=== PATIENT | female | born 1960 | race African-American/Black ===

== ENCOUNTER 2021-09-13 19:01 | Emergency (ER) | payer BC ==
[2021-09-13] MEDS ORDERED: NA CHLORIDE 0.9% 1,000 ML ONE ×2 (20:20→21:31)
[2021-09-13] MEDS ORDERED: INSULIN -REGULAR HUMAN 50 UNIT/0.5 ML ML ONE (20:20)
[2021-09-13 20:25] LABS: Urine Blood Trace-lysed (Negative); Urine Glucose 2+ (Negative); Urine Protein Negative (Negative)
[2021-09-13 20:27] LABS: Absolute Lymphocytes (CBC) 1.7 K/uL (0.7-4.9); Hematocrit 39.9 % (36.0-45.0); Lymphocytes % 20.9 % (15.3-44.8); RBC Red Blood Cell Count 4.43 M/uL (3.86-4.86)
[2021-09-13 20:33] LABS: BUN Blood Urea Nitrogen 33 mg/dL (7-18); Bicarbonate 24 mmol/L (21-32); Potassium 4.4 mmol/L (3.5-5.1); Sodium Level 129 mmol/L (136-145)
[2021-09-13 20:34] LABS: Glucose Level 495 mg/dL (74-106)
[2021-09-13 21:30] LABS: Arterial Blood Carboxyhemoglob 1.3 % (0-1.5); Blood Gas Oxyhemoglobin 93.5 % (94-97); Blood O2 Saturation 96.1 % (92-98.5)
[2021-09-13] MEDS ORDERED: KETOROLAC 30 MG/ML INJ ONE (21:31)
--- NOTE | 2021-09-13 21:53 | ER ---
Nurse's Notes [facility] Name: Judit Presley Age: 61 yrs Sex: Female : 1960 Arrival Date: 09/13/2021 Time: 19:03 Bed 6 Private MD: Diagnosis: Diabetes mellitus due to underlying condition with hyperglycemia Presentation: 09/13 19:35 Chief complaint: Patient states: high blood sugar reading of 471 at home. denies any lg3 symptoms other than being tired. Coronavirus screen: Client denies travel out of the [place] in the last 14 days. At this time, the client does not indicate any symptoms associated with coronavirus-19. Ebola Screen: No symptoms or risks identified at this time. Initial Sepsis Screen: Does the patient meet any 2 criteria? No. Patient's initial sepsis screen is negative. Does the patient have a suspected source of infection? No. Patient's initial sepsis screen is negative. Risk Assessment: Do you want to hurt yourself or someone else? Patient reports no desire to harm self or others. Onset of symptoms was September 13, 2021 at 17:15. 19:35 Method Of Arrival: Ambulatory lg3 19:35 Acuity: ALEXIS 4 lg3 Triage Assessment: 19:38 General: Appears in no apparent distress. comfortable, Behavior is calm, cooperative. lg3 Pain: Denies pain. Neuro: No deficits noted. Level of Consciousness is awake, alert, obeys commands, Oriented to person, place, time, situation, [place] are equal bilaterally Moves all extremities. Gait is steady. Respiratory: No deficits noted. Airway is patent Trachea midline Respiratory effort is even, unlabored, Respiratory pattern is regular, symmetrical. Historical: - Allergies: 19:38 No Known Allergies; lg3 - Home Meds: 19:38 hydrochlorothiazide 25 mg Oral tab 1 tab once daily [Active]; irbesartan 300 mg oral lg3 tab 1 tab once daily [Active]; - PMHx: 19:38 Diabetes mellitus; lg3 - PSHx: 19:38 None; lg3 - Immunization history:: Adult Immunizations up to date, Client reports receiving the 2nd dose of the Covid vaccine, pfizer X3. - Social history:: Smoking status: Patient denies any tobacco usage or history of. Patient uses alcohol, only on a social basis. Patient/guardian denies using street drugs. Screenin:43 Abuse screen: Denies threats or abuse. Denies injuries from another. Nutritional sm5 screening: No deficits noted. Tuberculosis screening: No symptoms or risk factors identified. Fall Risk None identified. Assessment: 20:25 General: Appears in no apparent distress. Behavior is cooperative, appropriate for age. sm5 Pain: Denies pain. Neuro: No deficits noted. Level of Consciousness is awake, alert, obeys commands, Oriented to person, place, time, situation. Cardiovascular: No deficits noted. Capillary refill < 3 seconds Patient's skin is warm and dry. Respiratory: No deficits noted. Airway is patent Trachea midline Respiratory effort is even, unlabored. 21:36 Reassessment: No changes from previously documented assessment. sm5 22:15 Reassessment: Patient states feeling better. sm5 Vital Signs: 19:35 BP 134 / 93; Pulse 118; Resp 18 S; Temp 98.2(TE); Pulse Ox 100% on R/A; Weight 70.31 kg lg3 (R); Height 5 ft. 3 in. (160.02 cm) (R); Pain 0/10; 21:53 BP 126 / 69; Pulse 95; Resp 18; Pulse Ox 97% on R/A; sm5 22:00 BP 118 / 96; Pulse 92; Resp 17; Pulse Ox 100% on R/A; sm5 19:35 Body Mass Index 27.46 (70.31 kg, 160.02 cm) lg3 ED Course: 19:03 Patient arrived in ED. kc5 19:38 Triage completed. lg3 19:38 Arm band placed on right wrist. lg3 19:47 Adam Smith PA is PHCP. jr8 19:47 John Rios MD is Attending Physician. jr8 19:56 Gladis Smith RN is Primary Nurse. sm5 20:11 Inserted saline lock: 20 gauge in right forearm, using aseptic technique. sm5 20:12 Acetone, Serum Sent. sm5 20:12 Basic Metabolic Panel Sent. sm5 20:12 CBC with Diff Sent. sm5 22:43 Patient has correct armband on for positive identification. Bed in low position. Call 5 light in reach. Side rails up X2. 22:44 No provider procedures requiring assistance completed. IV discontinued, intact, sm5 bleeding controlled, No redness/swelling at site. Pressure dressing applied. Administered Medications: 20:20 Drug: NS 0.9% 1000 ml Route: IV; Rate: 1000 ml; Site: right forearm; sm5 20:20 Drug: Insulin Regular Human 10 units {Co-Signature: st1 (Marifer Shields RN).} Route: sm5 IVP; Site: right forearm; 21:32 Drug: Ketorolac 15 mg Route: IVP; Site: right forearm; sm5 21:32 Drug: NS 0.9% 1000 ml Route: IV; Rate: 1000 ml; Site: right forearm; 5 Outcome: 21:52 Discharge ordered by . kayode 22:44 Discharged to home ambulatory. [facility] 22:44 Condition: good 22:44 Discharge instructions given to patient, Instructed on discharge instructions, follow up and referral plans. keeping a record of blood sugars Demonstrated understanding of instructions, follow-up care. 22:45 Patient left the ED. [facility] Signatures: Adam Smith PA PA jr8 Danuta Joyce RN RN lg3 Michelle Rush 5 Gladis Smith RN RN sm5 Marifer Shields RN st1
--- NOTE | 2021-09-13 21:53 | EDPHYS ---
Physician Documentation [facility] Name: Judit Presley Age: 61 yrs Sex: Female : 1960 Arrival Date: 09/13/2021 Time: 19:03 Bed 6 Private MD: ED Physician John Rios HPI: 09/13 20:03 This 61 yrs old Black Female presents to ER via Ambulatory with complaints of High jr8 Blood Sugar. 20:03 Onset: The symptoms/episode began/occurred gradually, 2 day(s) ago. Associated signs jr8 and symptoms: Pertinent positives: polyuria, Brain fog and extreme fatigue. Current symptoms: In the emergency department the patient's symptoms are unchanged from the initial presentation. The patient has experienced a previous episode. The patient has not recently seen a physician. Historical: - Allergies: 19:38 No Known Allergies; lg3 - Home Meds: 19:38 hydrochlorothiazide 25 mg Oral tab 1 tab once daily [Active]; irbesartan 300 mg oral lg3 tab 1 tab once daily [Active]; - PMHx: 19:38 Diabetes mellitus; lg3 - PSHx: 19:38 None; lg3 - Immunization history:: Adult Immunizations up to date, Client reports receiving the 2nd dose of the Covid vaccine, pfizer X3. - Social history:: Smoking status: Patient denies any tobacco usage or history of. Patient uses alcohol, only on a social basis. Patient/guardian denies using street drugs. ROS: 20:03 Eyes: Negative for injury, pain, redness, and discharge, ENT: Negative for injury, jr8 pain, and discharge, Neck: Negative for injury, pain, and swelling, Cardiovascular: Negative for chest pain, palpitations, and edema, Respiratory: Negative for shortness of breath, cough, wheezing, and pleuritic chest pain, Abdomen/GI: Negative for abdominal pain, nausea, vomiting, diarrhea, and constipation, Back: Negative for injury and pain, MS/Extremity: Negative for injury and deformity, Skin: Negative for injury, rash, and discoloration, Neuro: Negative for headache, weakness, numbness, tingling, and seizure. 20:03 Constitutional: Positive for fatigue, malaise. 20:03 Endocrine: Positive for polyuria. Exam: 20:03 Constitutional: This is a well developed, well nourished patient who is awake, alert, jr8 and in no acute distress. Eyes: Pupils equal round and reactive to light, extra-ocular motions intact. Lids and lashes normal. Conjunctiva and sclera are non-icteric and not injected. Cornea within normal limits. Periorbital areas with no swelling, redness, or edema. ENT: Nares patent. No nasal discharge, no septal abnormalities noted. Tympanic membranes are normal and external auditory canals are clear. Oropharynx with no redness, swelling, or masses, exudates, or evidence of obstruction, uvula midline. Mucous membranes moist. Neck: Trachea midline, no thyromegaly or masses palpated, and no cervical lymphadenopathy. Supple, full range of motion without nuchal rigidity, or vertebral point tenderness. No Meningismus. Cardiovascular: Regular rate and rhythm with a normal S1 and S2. No gallops, murmurs, or rubs. Normal PMI, no JVD. No pulse deficits. Respiratory: Lungs have equal breath sounds bilaterally, clear to auscultation and percussion. No rales, rhonchi or wheezes noted. No increased work of breathing, no retractions or nasal flaring. Abdomen/GI: Soft, non-tender, with normal bowel sounds. No distension or tympany. No guarding or rebound. No evidence of tenderness throughout. Skin: Warm, dry with normal turgor. Normal color with no rashes, no lesions, and no evidence of cellulitis. MS/ Extremity: Pulses equal, no cyanosis. Neurovascular intact. Full, normal range of motion. Neuro: Awake and alert, GCS 15, oriented to person, place, time, and situation. Cranial nerves II-XII grossly intact. Motor strength 5/5 in all extremities. Sensory grossly intact. Cerebellar exam normal. Normal gait. Vital Signs: 19:35 BP 134 / 93; Pulse 118; Resp 18 S; Temp 98.2(TE); Pulse Ox 100% on R/A; Weight 70.31 kg lg3 (R); Height 5 ft. 3 in. (160.02 cm) (R); Pain 0/10; 21:53 BP 126 / 69; Pulse 95; Resp 18; Pulse Ox 97% on R/A; sm5 22:00 BP 118 / 96; Pulse 92; Resp 17; Pulse Ox 100% on R/A; sm5 19:35 Body Mass Index 27.46 (70.31 kg, 160.02 cm) lg3 MDM: 19:47 Patient medically screened. [facility] 21:51 Data reviewed: vital signs, nurses notes, lab test result(s), and as a result, I will jr8 discharge patient. Data interpreted: Pulse oximetry: on room air is 100 %. Interpretation: normal. Counseling: I had a detailed discussion with the patient and/or guardian regarding: the historical points, exam findings, and any diagnostic results supporting the discharge/admit diagnosis, lab results, the need for outpatient follow up, a family practitioner, to return to the emergency department if symptoms worsen or persist or if there are any questions or concerns that arise at home. Response to treatment: the patient's symptoms have markedly improved after treatment, patient is well hydrated. 09/13 19:55 Order name: Glucose, Ancillary Testing; Complete Time: 19:57 EDMS 09/13 19:58 Order name: CBC with Diff; Complete Time: 20:33 [facility] 09/13 19:58 Order name: Basic Metabolic Panel; Complete Time: 20:39 8 09/13 19:58 Order name: Acetone, Serum; Complete Time: 20:39 8 09/13 20:25 Order name: Urine Dipstick-Ancillary; Complete Time: 20:32 EDMS 09/13 20:39 Order name: ABG [facility] 09/13 19:47 Order name: Glucose Level; Complete Time: 19:56 [facility] 09/13 20:39 Order name: ABG Arterial Blood Gas; Complete Time: 21:32 EDMT 09/13 21:37 Order name: Glucose, Ancillary Testing; Complete Time: 21:51 EDMT 09/13 22:36 Order name: Glucose, Ancillary Testing; Complete Time: 01:34 EDMT 09/13 19:58 Order name: IV; Complete Time: 20:12 [facility] 09/13 19:58 Order name: Urine Dipstick-Ancillary (obtain specimen); Complete Time: 20:25 [facility] Administered Medications: 20:20 Drug: NS 0.9% 1000 ml Route: IV; Rate: 1000 ml; Site: right forearm; 5 20:20 Drug: Insulin Regular Human 10 units {Co-Signature: st1 (Marifer Shields RN).} Route: sm5 IVP; Site: right forearm; 21:32 Drug: Ketorolac 15 mg Route: IVP; Site: right forearm; sm5 21:32 Drug: NS 0.9% 1000 ml Route: IV; Rate: 1000 ml; Site: right forearm; sm5 Disposition: 09/14 00:56 Co-signature as Attending Physician, John Rios MD I agree with the assessment and kdr plan of care. Disposition Summary: 09/13/21 21:52 Discharge Ordered Location: Home jr8 Problem: new jr8 Symptoms: have improved jr8 Condition: Stable jr8 Diagnosis - Diabetes mellitus due to underlying condition with hyperglycemia jr8 Followup: jr8 - With: Private Physician - When: 5 - 6 days - Reason: Recheck today's complaints, Continuance of care, Re-evaluation by your physician Discharge Instructions: - Discharge Summary Sheet jr8 - Hyperglycemia jr8 Forms: - Medication Reconciliation Form jr8 - Thank You Letter jr8 - Antibiotic Education jr8 - Prescription Opioid Use jr8 Signatures: Dispatcher [employer] EDMS John Rios MD MD [facility] Adam Smith PA PA jr8 Danuta Joyce, RN RN lg3 Gladis Smith RN RN sm5 Marifer Shields RN st1
[2021-09-13 23:52] VITALS: TEMP 98.2
[2021-09-13 23:58] VITALS: BP 118/96; O2SAT 100
== END 2021-09-13 22:45 | disposition home or self-care (01) ==
LOC: ER 19:01
DX: E11.65 Type 2 diabetes mellitus with hyperglycemia (principal)
CPT/HCPCS: 85025; 80048; 36415; 82010; 82947 ×3; 81003; 82805; 96375; 96374; 99283; J7030 ×2

== ENCOUNTER 2021-09-20 16:33 | Emergency (ER) | payer BC ==
[2021-09-20] MEDS ORDERED: NA CHLORIDE 0.9% 1,000 ML ONE ×2 (17:28→20:25)
[2021-09-20 17:58] LABS: Absolute Lymphocytes (CBC) 1.7 K/uL (0.7-4.9); Hematocrit 41.5 % (36.0-45.0); Lymphocytes % 22.2 % (15.3-44.8); MPV 8.9 fL (7.6-11.3); RBC Red Blood Cell Count 4.69 M/uL (3.86-4.86)
[2021-09-20 18:21] LABS: ALT/SGPT 49 U/L (12-78); AST/SGOT 14 U/L (15-37); Albumin 3.9 g/dL (3.4-5.0); Alkaline Phosphatase 113 U/L (45-117); BUN Blood Urea Nitrogen 25 mg/dL (7-18); Bicarbonate 23 mmol/L (21-32); Bilirubin Total 0.7 mg/dL (0.2-1.0); Glucose Level 208 mg/dL (74-106); Potassium 3.5 mmol/L (3.5-5.1); Protein, Total 8.5 g/dL (6.4-8.2); Sodium Level 131 mmol/L (136-145)
--- NOTE | 2021-09-20 20:36 | ER ---
Nurse's Notes [facility] Name: Judit Presley Age: 61 yrs Sex: Female : 1960 Arrival Date: 09/20/2021 Time: 16:34 Bed 7 Private MD: Diagnosis: Hyperglycemia, unspecified Presentation: 09/20 17:00 Chief complaint: Patient states: reports elevated BS and generalized weakness x 3wks jh6 that has progressively gotten worse. states that BS has been over 3-400 and was seen in er last week for same s.s. Coronavirus screen: Vaccine status: Patient reports receiving the 2nd dose of the covid vaccine. Ebola Screen: Patient denies travel to an Ebola-affected area in the 21 days before illness onset. Initial Sepsis Screen: Does the patient meet any 2 criteria? No. Patient's initial sepsis screen is negative. Does the patient have a suspected source of infection? No. Patient's initial sepsis screen is negative. Risk Assessment: Do you want to hurt yourself or someone else? Patient reports no desire to harm self or others. Onset of symptoms. 17:00 Method Of Arrival: Ambulatory [facility] 17:00 Acuity: ALEXIS 3 6 Triage Assessment: 17:04 General: Appears in no apparent distress. Behavior is calm, cooperative, Smells of. [facility] Pain: Denies pain. 17:05 General: Appears in no apparent distress. comfortable, Behavior is calm, cooperative, bp appropriate for age. Pain: Denies pain. EENT: No deficits noted. Neuro: Level of Consciousness is awake, alert, obeys commands, Oriented to Appropriate for age. Cardiovascular: Rhythm is sinus rhythm. Respiratory: No deficits noted. GI: No deficits noted. : No signs and/or symptoms were reported regarding the genitourinary system. Derm: No deficits noted. Musculoskeletal: No deficits noted. Historical: - Allergies: 17:03 No Known Allergies; [facility] - PMHx: 17:03 diabetes mellitus; [facility] - Immunization history:: Adult Immunizations up to date, Client reports receiving the 2nd dose of the Covid vaccine. - Social history:: Smoking status: Patient denies any tobacco usage or history of. Screenin:04 Abuse screen: Denies threats or abuse. Nutritional screening: No deficits noted. [facility] Tuberculosis screening: No symptoms or risk factors identified. Fall Risk Gait- Weak (10 pts.). Assessment: 17:05 General: SEE TRIAGE NOTE. bp 17:46 Reassessment: No changes from previously documented assessment. Patient is alert, bp oriented x 3, equal unlabored respirations, skin warm/dry/pink. 18:30 Reassessment: No changes from previously documented assessment. Patient is alert, bp oriented x 3, equal unlabored respirations, skin warm/dry/pink. 20:00 General: Appears in no apparent distress. comfortable, Behavior is calm, cooperative, al4 patient states she has been feeling fatigued and took her blood sugar at home and it was high, but she had no other signs or symptoms that indicated high blood sugar. . Pain: Denies pain. Neuro: Level of Consciousness is awake, alert, obeys commands, Oriented to person, place, time, situation. Cardiovascular: Denies chest pain, shortness of breath, Capillary refill < 3 seconds Patient's skin is warm and dry. Respiratory: Airway is patent Respiratory effort is even, unlabored, Respiratory pattern is regular, symmetrical. GI: Patient currently denies diarrhea, nausea, vomiting. 20:00 Musculoskeletal: Range of motion: intact in all extremities. al4 20:36 Reassessment: Verbal order from ER ENGINEERING LAB TECHNICIAN to allow for completion of fluid bolus and a al4 repeat BGL once fluids are finished before discharge. 21:00 Reassessment: Patient is alert, oriented x 3, equal unlabored respirations, skin al4 warm/dry/pink. 21:51 Reassessment: BGL 143. al4 21:59 Reassessment: patient ambulated to restroom. al4 Vital Signs: 17:00 BP 106 / 82; Pulse 89; Resp 18; Temp 97.6; Pulse Ox 99% ; Weight 65.77 kg; Height 5 ft. jh6 3 in. (160.02 cm); Pain 0/10; 17:45 BP 137 / 74; Pulse 75; Resp 16; Pulse Ox 100% ; bp 18:30 BP 124 / 64; Pulse 84; Resp 16; Pulse Ox 99% ; bp 19:00 BP 120 / 69; Pulse 82; Resp 18; Pulse Ox 98% on R/A; al4 20:00 BP 131 / 67; Pulse 80; Resp 18; Pulse Ox 100% ; al4 21:30 BP 127 / 65; Pulse 84; Resp 18 S; Pulse Ox 100% on R/A; Pain 0/10; al4 17:00 Body Mass Index 25.69 (65.77 kg, 160.02 cm) [facility] ED Course: 16:34 Patient arrived in ED. as 17:03 Triage completed. jh6 17:04 Arm band placed on right wrist. 6 17:05 Patient has correct armband on for positive identification. Bed in low position. Call bp light in reach. Side rails up X2. 17:09 Kt Peter NP is PHCP. pm1 17:09 Scott Trivedi MD is Attending Physician. pm1 17:20 Robert Morrison, CATHY is Primary Nurse. bp 17:45 Inserted saline lock: 22 gauge in right antecubital area, using aseptic technique. bp Blood collected. 19:31 TSH Sent. ke1 19:31 CMP Sent. ke1 19:31 Ketone, Serum Sent. ke1 19:31 CBC with Diff Sent. ke1 22:07 No provider procedures requiring assistance completed. IV discontinued, intact, al4 bleeding controlled, No redness/swelling at site. Pressure dressing applied. Administered Medications: 17:45 Drug: NS 0.9% 1000 ml Route: IV; Rate: 1000 ml; Site: right antecubital; bp 19:00 Follow up: Response: No adverse reaction al4 20:28 Drug: NS 0.9% 1000 ml Route: IV; Rate: 1000 ml; Site: right antecubital; al4 21:52 Follow up: IV Status: Completed infusion al4 Outcome: 20:36 Discharge ordered by MD. pm1 22:07 Discharged to home ambulatory. al4 22:07 Condition: stable 22:07 Discharge instructions given to patient, Instructed on discharge instructions, follow up and referral plans. Demonstrated understanding of instructions, follow-up care. 22:09 Patient left the ED. al4 Signatures: Carmen Torrez Patrick, YOLANDA ENGINEERING LAB TECHNICIAN pm1 Robert Morrison, CATHY MORGAN bp Clary Terrazas RN RN 6 Davion Givens al4 Mohinder Nick RN RN ke1 Corrections: (The following items were deleted from the chart) 20:32 20:00 General: Appears in no apparent distress. comfortable, Behavior is calm, al4 cooperative, patient states she took her blood sugar at home and it was high, but she had no signs or symptoms that indicated high blood sugar. . al4
--- NOTE | 2021-09-20 20:36 | EDPHYS ---
Physician Documentation [facility] Name: Judit Presley Age: 61 yrs Sex: Female : 1960 Arrival Date: 09/20/2021 Time: 16:34 Bed 7 Private MD: ED Physician Scott Trivedi HPI: 09/20 17:39 This 61 yrs old Black Female presents to ER via Ambulatory with complaints of High pm1 Blood Sugar. 17:39 The patient or guardian reports hyperglycemia, that was potentially precipitated by pm1 unknown. Onset: The symptoms/episode began/occurred 2 week(s) ago. Associated signs and symptoms: Pertinent positives: fatigue. Current symptoms: In the emergency department the patient's symptoms are unchanged from the initial presentation. The patient has been recently seen by a physician: the patient's primary care provider, with similar presenting complaints, given two additional diabetic medications. Patient with complaints of hyperglycemia 300 to 400 range for the past 2 weeks. Patient was seen here in the ER for the same complaints 1 week ago and was discharged home after hyperglycemia improved. Patient followed up with her PCP the next day and was prescribed 2 new medications. Patient reports feeling fatigued from the medications. She has been continuing to take the medications. She had some blood work that was ordered by PCP but she has not been able to get them completed. Historical: - Allergies: 17:03 No Known Allergies; jh6 - PMHx: 17:03 diabetes mellitus; 6 - Immunization history:: Adult Immunizations up to date, Client reports receiving the 2nd dose of the Covid vaccine. - Social history:: Smoking status: Patient denies any tobacco usage or history of. ROS: 17:43 Cardiovascular: Negative for chest pain, palpitations, and edema, Respiratory: Negative pm1 for shortness of breath, cough, wheezing, and pleuritic chest pain, Abdomen/GI: Negative for abdominal pain, nausea, vomiting, diarrhea, and constipation, Back: Negative for injury and pain, MS/Extremity: Negative for injury and deformity, Skin: Negative for injury, rash, and discoloration, Neuro: Negative for headache, weakness, numbness, tingling, and seizure. 17:43 Constitutional: Positive for Decreased energy, Negative for body aches, fever, poor PO intake. 17:43 All other systems are negative. Exam: 17:43 Constitutional: This is a well developed, well nourished patient who is awake, alert, pm1 and in no acute distress. Head/Face: Normocephalic, atraumatic. 17:43 Back: No spinal tenderness. No costovertebral tenderness. Full range of motion. Skin: Warm, dry with normal turgor. Normal color with no rashes, no lesions, and no evidence of cellulitis. MS/ Extremity: Pulses equal, no cyanosis. Neurovascular intact. Full, normal range of motion. 17:43 Eyes: Exam is negative for acute changes, Extraocular movements: intact throughout, Conjunctiva: no acute changes, no injection, Sclera: no acute changes, icterus, is not appreciated. 17:43 ENT: Exam is negative for acute changes, Mouth: no acute changes, Lips: normal, moist, Oral mucosa: normal, pink and intact, moist. 17:43 Cardiovascular: Exam negative for acute changes, Rate: normal, Rhythm: regular, Pulses: no pulse deficits are appreciated, Heart sounds: normal. 17:43 Respiratory: Exam negative for acute changes, respiratory distress, shortness of breath, Breath sounds: are clear throughout. 17:43 Abdomen/GI: Exam negative for acute changes, Inspection: abdomen appears normal, Palpation: abdomen is soft and non-tender, in all quadrants. 17:43 Neuro: Exam negative for acute changes, Orientation: is normal, Mentation: is normal, Motor: is normal, moves all fours. Vital Signs: 17:00 BP 106 / 82; Pulse 89; Resp 18; Temp 97.6; Pulse Ox 99% ; Weight 65.77 kg; Height 5 ft. jh6 3 in. (160.02 cm); Pain 0/10; 17:45 BP 137 / 74; Pulse 75; Resp 16; Pulse Ox 100% ; bp 18:30 BP 124 / 64; Pulse 84; Resp 16; Pulse Ox 99% ; bp 19:00 BP 120 / 69; Pulse 82; Resp 18; Pulse Ox 98% on R/A; al4 20:00 BP 131 / 67; Pulse 80; Resp 18; Pulse Ox 100% ; al4 21:30 BP 127 / 65; Pulse 84; Resp 18 S; Pulse Ox 100% on R/A; Pain 0/10; al4 17:00 Body Mass Index 25.69 (65.77 kg, 160.02 cm) jh6 MDM: 17:10 Patient medically screened. stefan 20:35 Data reviewed: vital signs. Data interpreted: Pulse oximetry: on room air is 100 %. pm1 Interpretation: normal. Counseling: I had a detailed discussion with the patient and/or guardian regarding: the historical points, exam findings, and any diagnostic results supporting the discharge/admit diagnosis, lab results, the need for outpatient follow up, to return to the emergency department if symptoms worsen or persist or if there are any questions or concerns that arise at home. 09/20 17:12 Order name: Glucose, Ancillary Testing; Complete Time: 17:21 EDMS 09/20 17:21 Order name: CBC with Diff pm1 09/20 17:21 Order name: CMP pm1 09/20 17:21 Order name: Ketone, Serum pm1 09/20 17:21 Order name: TSH pm1 09/20 17:21 Order name: CBC with Automated Diff; Complete Time: 18:06 EDMS 09/20 17:21 Order name: Comprehensive Metabolic Panel; Complete Time: 18:55 EDMS 09/20 17:21 Order name: Acetone Level; Complete Time: 18:55 EDMS 09/20 17:21 Order name: Thyroid Stimulating Hormone; Complete Time: 18:55 EDMS 09/20 18:56 Order name: ABG pm1 09/20 18:57 Order name: ABG Arterial Blood Gas; Complete Time: 22:35 EDMS 09/20 22:00 Order name: Glucose, Ancillary Testing EDTN 09/20 22:01 Order name: Urine Dipstick-Ancillary; Complete Time: 22:35 EDMS 09/20 17:21 Order name: Urine Dipstick-Ancillary (obtain specimen); Complete Time: 21:59 pm1 09/20 17:21 Order name: IV Saline Lock; Complete Time: 17:45 pm1 09/20 20:36 Order name: Glucose Level: after 2nd NS bolus; Complete Time: 21:51 pm1 Administered Medications: 17:45 Drug: NS 0.9% 1000 ml Route: IV; Rate: 1000 ml; Site: right antecubital; bp 19:00 Follow up: Response: No adverse reaction al4 20:28 Drug: NS 0.9% 1000 ml Route: IV; Rate: 1000 ml; Site: right antecubital; al4 21:52 Follow up: IV Status: Completed infusion al4 Disposition Summary: 09/20/21 20:36 Discharge Ordered Location: Home pm1 Problem: new pm1 Symptoms: have improved pm1 Condition: Stable pm1 Diagnosis - Hyperglycemia, unspecified pm1 Followup: pm1 - With: Emergency Department - When: As needed - Reason: Worsening of condition Followup: pm1 - With: Private Physician - When: 2 - 3 days - Reason: Recheck today's complaints, Continuance of care, Re-evaluation by your physician Discharge Instructions: - Discharge Summary Sheet pm1 - Hyperglycemia pm1 - Blood Glucose Monitoring, Adult pm1 - Diabetes Mellitus and Exercise pm1 - Diabetes Mellitus and Nutrition, Adult pm1 Forms: - Medication Reconciliation Form pm1 - Thank You Letter pm1 - Antibiotic Education pm1 - Prescription Opioid Use pm1 Addendum: 09/23/2021 09:24 Co-signature as Attending Physician, Scott Trivedi MD I agree with the assessment and c reilly plan of care. Signatures: Dispatcher [employer] EDScott Henao MD MD cha Marinas, Patrick, YOLANDA TORPEDO SPECIALIST pm1 Robetr Morrison, RN RN bp Clary Terrazas RN RN jh6 Davion Givens al4
[2021-09-20 22:00] LABS: Arterial Blood Carboxyhemoglob 1.6 % (0-1.5); Blood Gas Oxyhemoglobin 94.5 % (94-97); Blood O2 Saturation 97.2 % (92-98.5)
[2021-09-20 22:01] LABS: Urine Blood Trace-intact (Negative); Urine Glucose 2+ (Negative); Urine Protein Trace (Negative); Urine Specific Gravity 1.025 (1.005-1.030); Urine pH 5.5 (5.0-7.0)
[2021-09-20 22:51] VITALS: TEMP 97.6
[2021-09-20 22:56] VITALS: O2SAT 100
[2021-09-20 22:58] VITALS: BP 127/65
== END 2021-09-20 22:09 | disposition home or self-care (01) ==
LOC: ER 16:33
DX: E11.65 Type 2 diabetes mellitus with hyperglycemia (principal)
CPT/HCPCS: 85025; 36415; 82010; 82947 ×2; 84443; 81003; 80053; 82805; 96360; 99284; J7030 ×2

== ENCOUNTER 2022-08-22 07:51 | Observation (INO) | payer BC ==
--- NOTE | 2022-08-19 16:16 | RAD REPORT ---
EXAM DESCRIPTION: RAD - Chest Pa And Lat (2 Views) - 08/19/2022 4:06 pm CLINICAL HISTORY: Pre op pending possible appendectomy COMPARISON: <Comparisons> FINDINGS: Lines: None. Lungs: No evidence of edema or pneumonia. Pleural: No significant pleural effusions or pneumothorax. Cardiac: The heart size is within normal limits. Mediastinum: Within normal limits. Bones: No acute fractures. Other: None IMPRESSION: No acute cardiopulmonary disease.
[2022-08-19 16:46] LABS: Absolute Lymphocytes (CBC) 2.2 K/uL (0.7-4.9); Hematocrit 38.5 % (36.0-45.0); Lymphocytes % 30.4 % (15.3-44.8); MCV 90.1 fL (80-100); MPV 7.7 fL (7.6-11.3); RBC Red Blood Cell Count 4.28 M/uL (3.86-4.86)
[2022-08-19 16:48] LABS: Potassium 3.7 mmol/L (3.5-5.1)
[2022-08-22] MEDS ORDERED: propofoL 200 MG/20 ML VIAL IV ONE (08:05)
[2022-08-22] MEDS ORDERED: ROCURONIUM 50 MG/5 ML VIAL IV ONE (08:05)
[2022-08-22] MEDS ORDERED: FENTANYL CITR 100 MCG/2 ML ONE ×2 (08:05→10:04)
[2022-08-22] MEDS ORDERED: dexAMETHasone 10 MG/ML VIAL ONE (08:06)
[2022-08-22] MEDS ORDERED: LIDOCAINE 2% MPF 5 ML VIAL ONE (08:06)
[2022-08-22] MEDS ORDERED: KETOROLAC 30 MG/ML INJ ONE (08:09)
[2022-08-22] MEDS ORDERED: MIDAZOLAM HCL 2 MG/2 ML INJ ONE (08:09)
[2022-08-22] MEDS ORDERED: ONDANSETRON 4 MG/2 ML VIAL ONE (08:11)
[2022-08-22] MEDS: NA CHLORIDE 0.9% 1,000 ML ONE ×2 (08:11→09:28)
[2022-08-22] MEDS ORDERED: CEFOXITIN SODIUM 1 GM/VIAL ONE (09:30)
[2022-08-22] MEDS ORDERED: NA CHLORIDE 0.9% 1,000 ML ONE (10:36)
[2022-08-22] MEDS ORDERED: Mastisol Adhesive Liq ONE (10:56)
[2022-08-22] MEDS ORDERED: EPHEDRINE SULF 50 MG/ML VIAL ONE (10:56)
[2022-08-22] MEDS ORDERED: GLYCOPYRROLATE 0.2 MG/ML SYR ONE (11:00)
[2022-08-22] MEDS ORDERED: NEOSTIGMINE 1 MG/ML -5 ML ONE (11:02)
[2022-08-22 11:47] LABS: SARS-CoV-2 Antigen Rapid Res Negative (Negative)
[2022-08-22] MEDS ORDERED: ONDANSETRON 4 MG/2 ML VIAL IV PRN (12:02)
[2022-08-22] MEDS ORDERED: SODIUM CHLORIDE 0.9% 10ML INJ IV PRN (12:02)
[2022-08-22] MEDS ORDERED: HYDROCODONE/APAP 5/325 MG TAB PO PRN (12:02)
[2022-08-22] MEDS ORDERED: MORPHINE 2 MG/ML SYR IV PRN (12:02)
--- NOTE | 2022-08-22 12:07 | P.BOP ---
Preoperative diagnosis: abdominal pain, abnormal appendix Postoperative diagnosis: same Primary procedure: Extensive lower abdomen intrabdominal adhesions Estimated blood loss: <10cc Specimen: none Findings: see dicta Anesthesia: General Transferred to: Recovery Room Condition: Good
--- OUTSIDE RECORDS SUMMARY | 2022-08-22 12:26 | XMS REPORT | Continuity of Care Document ---
:1960 Author Organization [facility] t Address [address] [place] [address] Care Team Providers Name Role Phone JANNY SELBY Primary Care Physician Krysten Burgess MD Attending Clinician KRYSTEN LOPES Attending Clinician Unavailable Doctor Unassigned, [place] Attending Clinician Unavailable Payers Payer Name Policy Type Policy Number Effective Date Expiration Date S ource Problems Condition Condition Condition Status Onset Resolution Last Treating Co mments Source Name Details Category Date Date Treatment Clinician Date No known No known Disease Unive rs active active ity of problems problems [facility] Allergies, Adverse Reactions, Alerts Allergy Allergy Status Severity Reaction(s) Onset Inactive Treating Comm ents Source Name Type Date Date Clinician NO KNOWN Drug Active Univers ALLERGIE Class ity of S [facility] Social History Social Habit Start Date Stop Date Quantity Comments Source History of Cigarette Smoker Universi ty of tobacco use [facility] Exposure to 2021-11-02 2021-11-12 Not sure [facility] SARS-CoV-2 00:00:00 09:41:00 [facility] (event) [place] Tobacco use and 2021-11-12 2021-11-12 Never used Universit y of exposure 00:00:00 00:00:00 [facility] Alcohol intake 2021-11-12 2021-11-12 .29 /d [facility] 00:00:00 00:00:00 [facility] Sex Ass[birth year] At [birth year] Universit y of 00:00:00 00:00:00 [facility] Smoking Status Start Date Stop Date Source Never smoker [facility] Medications Ordered Filled Start Stop Current Ordering Indication Dosage Frequency Signature Comments Components Source Medication Medication Date Date Medication? Clinician (SIG) Name Name irbesartan Yes 150mg Take 150 Un sue 150 mg 4-22 mg by ity of tablet 09:52: mouth [place] 50 daily. [facility] metFORMIN Yes 1000mg Take 1,000 Univers 1,000 mg 4-22 mg by ity of tablet 09:52: mouth 4 [place] 50 (four) Medical times Branch daily. Immunizations Ordered Filled Immunization Date Status Comments Sour e Immunization Name Name SARS-COV-2 COVID-19 2020-10-10 Completed Unive rsity of PFIZER VACCINE 00:00:00 [facility] SARS-COV-2 COVID-19 2020-09-19 Completed Unive rsity of PFIZER VACCINE 00:00:00 [facility] Vital Signs Vital Name Observation Time Observation Value Comments Source Systolic blood 2021-11-12 14:49:00 102 mm[Hg] Univer sity [facility] Diastolic blood 2021-11-12 14:49:00 63 mm[Hg] [facility] Heart rate 2021-11-12 14:49:00 89 /min [facility] Body height 2021-11-12 14:49:00 160 cm [facility] Body weight 2021-11-12 14:49:00 66.407 kg [facility] BMI 2021-11-12 14:49:00 25.93 kg/m2 [facility] Oxygen saturation 2021-11-12 14:49:00 100 /min [facility] in Arterial blood [facility] by Pulse oximetry Procedures This patient has no known procedures. Encounters Start End Encounter Admission Attending Care Care Encounter Source Date/Time Date/Time Type Type Clinicians Facility Department ID 2021-11-12 2021-11-12 Office GORDON Lopes [id number] Univers 09:40:00 10:11:29 Visit Krysten WARREN [id number] itTunde [id number] Lam AVERY [id number] Ri dical [facility] 2021-11-12 2021-11-12 Outpatient R MARIANNE [facility] [id number] Univers 09:40:00 10:11:29 KRYSTEN saldaña [facility] 2021-11-12 2021-11-12 Outpatient Tyra LOPES [facility] [id number] [facility] 09:40:00 10:11:29 KRYSTEN saldaña [facility] 2021-11-12 2021-11-12 Orders Doctor RENETTA [id number] Univers 00:00:00 00:00:00 Only Unassigned, APOLINAR [id number] ity of [place] [facility] [id number] Kb as [phone] [place] [id number] Branch Results This patient has no known results.
[2022-08-22 14:44] VITALS: BMI 27.2
[2022-08-22] MEDS: NA CHLORIDE 0.9% 1,000 ML IV SCH (14:48)
[2022-08-22] MEDS: CEFOXITIN 1 GM in NA CHLORIDE 0.9% 50 ML IVPB SCH ×2 (16:50→21:27)
[2022-08-22 23:17] VITALS: O2SAT 98
[2022-08-23] MEDS: NA CHLORIDE 0.9% 1,000 ML IV SCH (00:30)
[2022-08-23] MEDS: CEFOXITIN 1 GM in NA CHLORIDE 0.9% 50 ML IVPB SCH (03:59)
[2022-08-23 05:43] LABS: Absolute Lymphocytes (CBC) 1.7 K/uL (0.7-4.9); Hematocrit 31.4 % (36.0-45.0); Lymphocytes % 25.7 % (15.3-44.8); MPV 7.3 fL (7.6-11.3); RBC Red Blood Cell Count 3.45 M/uL (3.86-4.86)
[2022-08-23 07:48] VITALS: BP 157/73; TEMP 97
[2022-08-23] MEDS ORDERED: PANTOPRAZOLE 40 MG INJ IVP SCH (09:00)
--- NOTE | 2022-08-23 17:09 | EKG ---
Test Date: 2022-08-19 Test Time: 15:46:41 Hydroelectric Operator: ANNALISA MEASUREMENT RESULTS: Intervals: Rate: 89 MA: 164 QRSD: 80 QT: 370 QTc: 450 [place]: P: 73 MA: 164 QRS: 1 T: 43 INTERPRETIVE STATEMENTS: Normal sinus rhythm Normal ECG Compared to ECG 07/13/2006 12:29:55 No significant changes Electronically Signed On 08-23-22 17:00:27 MARKETING SUPPORT ASSISTANT by Taz Jalloh
== END 2022-08-23 11:59 | disposition home or self-care (01) ==
LOC: OR 07:51 → 2ND 12:23
PROVIDERS: ADMIT Surgery; ATTEND Surgery
PROC: 0DNU4ZZ Release Omentum, Percutaneous Endoscopic Approach (ICD-10-PCS; principal; 2022-08-22 09:30)
DX: R10.31 Right lower quadrant pain (principal); K66.0 Peritoneal adhesions (postprocedural) (postinfection); K38.8 Other specified diseases of appendix; Z80.0 Family history of malignant neoplasm of digestive organs; Z20.822 Contact with and (suspected) exposure to COVID-19
CPT/HCPCS: 93005; 85025 ×2; 80048 ×2; 36415 ×3; 82947 ×2; 71046; 94010; 87811; 49329; J2704; J2001; C9113; J2250; J3010 ×2; J2710; J7030 ×4; J0694 ×4; J2405; G0378; G0379; J1100